=== PATIENT | female | born 2000 | race Caucasian/White ===

== ENCOUNTER 2022-04-20 09:08 | Emergency (ER) | payer OTHER ==
[2022-04-20] MEDS ORDERED: Hydrogen Peroxide 3% Top Soln 473 ML Bottle TOP ONE (09:35)
== END 2022-04-20 10:29 | disposition home or self-care (01) ==
LOC: MW.ED 09:08
DX: H61.22 Impacted cerumen, left ear (principal); Z86.16 Personal history of COVID-19
CPT/HCPCS: 69209; 99282

== ENCOUNTER 2022-08-19 08:42 | Emergency (ER) | payer OTHER ==
[2022-08-19] MEDS ORDERED: Sodium Chloride 0.9% 2.5 ML Syringe FLUSH PRN (08:57)
[2022-08-19] MEDS ORDERED: Sodium Chloride 0.9% 10 ML Syringe FLUSH PRN (08:57)
[2022-08-19] MEDS ORDERED: Sodium Chloride 0.9% 1,000 ML IV ONE (09:33)
[2022-08-19] MEDS ORDERED: Ketorolac 30 MG/ML SDV IVPUSH ONE (09:33)
[2022-08-19] MEDS ORDERED: Ondansetron 4 MG/2 ML SDV IVPUSH ONE (09:35)
[2022-08-19 09:50] LABS: CARBON DIOXIDE,CO2 25.4 mmol/L (21.0-32.0); POTASSIUM,K 3.6 mmol/L (3.5-5.1)
[2022-08-19] MEDS ORDERED: Ciprofloxacin 500 MG Tab PO ONE (11:01)
[2022-08-19] MEDS ORDERED: HYDROmorphone 1 MG/ML Syringe IVPUSH ONE (11:01)
== END 2022-08-19 12:20 | disposition home or self-care (01) ==
LOC: MW.ED 08:42
DX: N13.2 Hydronephrosis with renal and ureteral calculous obstruction (principal); Z88.4 Allergy status to anesthetic agent; Z86.16 Personal history of COVID-19
CPT/HCPCS: 36415; 74176; 80053; 81001; 81025; 83690; 85025; 96361; 96374; 96375; 99284; A9270; J1170; J1885; J2405; J3490; J7030